=== PATIENT | male | born 1990 | race Caucasian/White ===

== ENCOUNTER 2016-12-20 16:47 | Emergency (ER) | payer MEDICAID, OTHER ==
[~2016-12-20] VITALS: Ht 188 cm; Wt 72.7 kg
[~2016-12-20 16:47] MED LIST: OXYC-474 PO
[2016-12-20 16:49] VITALS: BP 144/88; PULSE 116; RESP 18; O2SAT 99
[2016-12-20] MEDS ORDERED: 0.9% Sodium Chloride 1,000 ML IV ONE (17:14)
[2016-12-20] MEDS ORDERED: Ondansetron 2 mg/mL 2 mL Inj IV PRN (17:15)
--- NOTE | 2016-12-20 18:26 | ED.REPORT ---
HPI-General Illness Date of Service Dec 20, 2016 ED Provider: Bunny Jimenez DO The patient is a 26 year old male w/ a hx of drug abuse and anxiety who is sent to the ED from [facility] due to benzo and heroin withdrawal. His last benzo use was 15 -16 mg of Valium yesterday at 0500 and heroin 48 hrs ago. He used meth and trazodone a week ago. He has been taking benzodiazepines every day on and off for the last couple years. Pt had a seizure 5 years ago. Nursing Notes Stated Complaint: DETOX Chief Complaint: Substance Abuse Nursing Notes Reviewed: Yes Allergies: Coded Allergies: No Known Allergies (Unverified Allergy, Unknown, 10/21/14) Scheduled PRN Oxycodone (Roxicodone) 5 Mg Tablet 5 MG PO Q4H PRN PRN For Pain General Time Seen by MD: 18:09 Chief Complaint Other (detox from benzo and heroin) Hx Obtained From: Patient Arrived By: Walk-in Sudden in Onset?: Yes Onset Occurred: Just prior to arrival Symptom Duration: Since onset Recent Healthcare: Recent doctor visit Similar Sx Previous: Yes Past Medical History Past Medical History anxiety Past Surgical History denies Smoking History Current Some Day Smoker, Light Tobacco Smoker Social History benzo, meth, heroin abuse Alcohol Use: 1-3 per week Other Social History: Local resident Ambulatory Status Independent Review of Systems detox from benzos and heroin Full Review of Systems Constitutional: Reports: Chills Skin: Reports Diaphoresis Psychiatric: Reports: Anxiety Complete sys rev & neg: except as marked. Physical Exam Vital Signs Vital Signs Date Time Temp Pulse Resp B/P Pulse Ox O2 Delivery O2 Flow Rate FiO2 12/20/16 22:28 86 135/81 100 Room Air 12/20/16 19:09 85 110/66 100 Room Air 12/20/16 16:49 37.0 116 18 144/88 99 Room Air Initial VS: Reviewed General/Constitutional: Awake, Alert, Cooperative Head / Eyes: Atraumatic, Normocephalic Respiratory / Chest: Atraumatic, Breath sounds NL, Breath sounds = bilat, No respiratory distress Cardiovascular: Heart rate NL, Regular rhythm, Heart sounds NL, No gallop, No murmurs, No rubs Abdomen: Atraumatic, Soft, Non-tender Upper Extremities Upper Extremity / MS: Atraumatic, Inspection NL, Full range of motion, No deformity Lower Extremity / Pelvis / MS: Atraumatic, Inspection NL, Full range of motion , No deformity Skin: Atraumatic, Color NL Color / Condition: Positive: Rash present Rash / Lesion Notes: erythematous rash on lower back and superior chest back Neurologic: Oriented X3, Speech NL, No motor deficits Interpretation & Diagnostics Lab Results Interpretation Result Diagram: 12/20/16 1828 12/20/16 182 Test 12/20/16 18:28 12/20/16 18:29 12/20/16 19:26 12/20/16 23:41 White Blood Count 8.5th/mm3 (3.8-10.1) Red Blood Count 4.72mil/mm3 (4.40-5.80) Hemoglobin 13.9g/dL (13.8-17.2) Hematocrit 40.1% (41.0-50.0) Mean Corpuscular Volume 85.0fL (81-100) Mean Corpuscular Hemoglobin 29.4pg (27.0-35.0) Mean Corpuscular Hemoglobin Concent 34.7% (32.0-37.0) Red Cell Distribution Width 14.2% (12.3-15.4) Platelet Count 244bil/L (150-400) Neutrophils (%) (Auto) 57.5% (40-74) Lymphocytes (%) (Auto) 30.6% (14-46) Monocytes (%) (Auto) 9.6% (4-12) Eosinophils (%) (Auto) 1.2% (0-5) Basophils (%) (Auto) 0.6% (0-3) Sodium Level 147mEq/L (134-144) Potassium Level 4.2mEq/L (3.5-5.2) Chloride Level 109mEq/L (97-108) Carbon Dioxide Level 25mmol/L (18-29) Blood Urea Nitrogen 16mg/dL (6-20) Creatinine 0.78mg/dL (0.76-1.27) Estimat Glomerular Filtration Rate 130mL/min (>59) Glucose Level 116mg/dL (60-99) Calcium Level 9.4mg/dL (8.5-10.1) Magnesium Level 2.1mg/dL (1.6-2.6) Total Bilirubin 0.2mg/dL (0.0-1.2) Aspartate Amino Transf (AST/SGOT) 15U/L (0-50) Alanine Aminotransferase (ALT/SGPT) 11U/L (0-44) Alkaline Phosphatase 86U/L (25-150) Total Protein 7.1g/dL (6.4-8.4) Albumin 4.0g/dL (3.4-5.0) Hold Gibson Top Tube Received (Received) Hold Urine Received (Received) Re-Eval/Medical Decision Med Decision/Clinical Course 1833: Plan for ativan and taper 2016: Pt requests to talk to a Suboxone doctor 2129: Pt is given more ativan. 2219: Pt states he will go to any care center that we refer him to. Plan to give pt the number to sobering services. 2228: They do not have any beds available at [facility]. Plan to complete the taper. Pt has a girlfriend he can go home with. Mr. Pickard is clearly withdrawing from benzodiazepines and opiates. What is alarming is that he is used to taking up to 40 mg of Valium a day. His last dose of Valium was yesterday and he presented quite tremulous and anxious tachycardic and had dilated pupils. Of course his opiate withdrawals added to this as well. 4 mg of IV Ativan over 6 hours took care of most of his withdrawal symptoms. Dr. Smith did give him a dose of Suboxone. We attempted to get him placed in sobering services. As it were there are no male beds available. He does have a girlfriend was clean and sober. She has agreed through a phone conversation with him to manage the Ativan. Mr. Pickard clearly understands that if he combines Ativan with heroin, alcohol or any other sedatives and can be life-threatening. He would like to taper himself off the drugs. Evidently he has had success with drug to person the past. He I will provide him with our standard Ativan taper for alcohol withdrawal. This should really help with his benzo withdrawal. He he was instructed not to drive tonight. He is discharged in stable condition. Time of Eval: 18:33 Re-Evaluation/Progress Note: Plan for ativan and taper. Time of Eval: 20:17 Re-Evaluation/Progress Note: Pt requests to talk to a Suboxone doctor. Dr. Ken Adrian will be into the ED at 2100. Time of Eval: 21:30 Re-Evaluation/Progress Note: Pt states he will go to any care center that we refer him to. Plan to give pt the number to sobering services. They do not have any beds available at [facility]. Pt has a girlfriend he can go home with. Plan to complete the taper and discharge pt with follow up at [facility] or [facility]. Counseled Regarding: Diagnosis, Lab results, Need for follow-up, When/why to return to ED Discharge & Departure Primary Impression: Withdrawal from benzodiazepine Complication of substance-induced condition: with unspecified complication Qualified Code: F13.239 - Sedative, hypnotic or anxiolytic dependence with withdrawal, unspecified Additional Impression: Heroin withdrawal Disposition: Home Discharge Condition All VS Reviewed: Yes Condition: Stable Patient Instructions: Benzodiazepine Abuse (DC) Additional Instructions: Thank you for entrusting us with your care today. Stay with your girlfriend or another responsible adult. Do not take any other drugs then the Ativan taper. Take this exactly as prescribed. Do not drive while taking Ativan. If you combine this with heroine, alcohol, or benzodiazepines or any other drugs it could be life threatening. Follow up with [facility] or [facility] tomorrow. Do not drive tonight. Do not hesitate to return to the Emergency Department if you experience any new or worsening symptoms. We are always here to help. Congratulations on going to treatment and best of luck with your recovery! Referrals: Meaghan Askew MD (PCP) [facility] Scribe Attestation Portion of this note were transcribed by Indu Vazquez. I, Dr. Jimenez, personally performed the history, physical exam, and medical decision-making: I reviewed and confirmed the accuracy for the information in the transcribed note. Signed by: dalton Walker, 12/20/16 2200 copies to: Meaghan Askew MD ; [facility]; [facility] Bunny Jimenez DO Dec 20, 2016 18:25 Indu Vazquez Dec 20, 2016 18:36
[2016-12-20 18:36] LABS: BASOPHILS % (AUTO) 0.6 % (0-3); EOSINOPHILS % (AUTO) 1.2 % (0-5); MONOCYTES % (AUTO) 9.6 % (4-12); Mean Corpuscular Hemoglobin 29.4 pg (27.0-35.0); NEUTROPHILS % (AUTO) 57.5 % (40-74); Platelet Count 244 bil/L (150-400)
[2016-12-20 18:55] LABS: Magnesium 2.1 mg/dL (1.6-2.6)
[2016-12-20 19:09] VITALS: BP 110/66; PULSE 85; O2SAT 100
[2016-12-20] MEDS ORDERED: Buprenorphine 2 mg SL Tablet SL ONE (21:20)
[2016-12-20 22:28] VITALS: BP 135/81; PULSE 86; O2SAT 100
[2016-12-20] MEDS ORDERED: _LORazepam 2 MG Tablet PO SCH (22:45)
[2016-12-21] MEDS ORDERED: Buprenorphine 2 mg SL Tablet SL ONE
[2016-12-25 12:08] LABS: Hepatitis A Antibody IgM Negative (Negative); Hepatitis B Core Antibody IgM Negative (Negative)
== END 2016-12-20 23:58 | disposition home or self-care (01) ==
LOC: SED 16:47
DX: F13.239 Sedative, hypnotic or anxiolytic dependence with withdrawal, unspecified (principal); F11.23 Opioid dependence with withdrawal; F17.200 Nicotine dependence, unspecified, uncomplicated
CPT/HCPCS: 36415; 80053; 81002; 83735; 85025; 86705; 86709; 87340; 87341; 93005; 96361; 96374; 96376; 99285; G0472; J2060; J7030

== ENCOUNTER 2016-12-26 05:44 | Emergency (ER) | payer MEDICAID ==
[~2016-12-26] VITALS: Ht 188 cm; Wt 70.5 kg
[2016-12-26 05:53] VITALS: BP 123/77; PULSE 78; RESP 16; O2SAT 99
[2016-12-26] MEDS ORDERED: DIAZ5TAB3 PO (05:58)
--- NOTE | 2016-12-26 06:01 | ED.REPORT ---
HPI-General Illness Date of Service Dec 26, 2016 ED Provider: Ganesh Tillman DO Patient is a 26 year old male with a hx of anxiety and heroin and Benzodiazepine abuse who presents to the ED wanting help with his Benzo withdrawals. He was at [facility] but left. He last took Benzo's last night. He reports he uses Bezos to help with his chronic low back pain. He also reports a rash on his back and chest with a slight itch onset a week ago, and L knee pain exacerbated by ROM. He denies pain with rash, fever, or any other symptoms. He has been seen for similar symptoms [address] Jimenez who referred him to [facility] and was given an Ativan taper. He was given instructions to not use street drugs but patient reports he has taken Xanax and Clonazepam in addition to the Ativan. He LWOBS from the department last night. Nursing Notes Stated Complaint: DETOX, RASH, LEFT KNEE AND BACK PAIN Chief Complaint: General Complaint Nursing Notes Reviewed: Yes Allergies: Coded Allergies: No Known Allergies (Verified Allergy, Unknown, 12/26/16) Scheduled Diazepam (Diazepam) 5 Mg Tablet 5 MG PO TID General Time Seen by MD: 06:00 Chief Complaint Multip medical complaints Hx Obtained From: Patient Arrived By: Walk-in Sudden in Onset?: No Onset Occurred: Onset unknown Symptom Duration: Since onset Recent Healthcare: Recent doctor visit Similar Sx Previous: Yes Past Medical History Past Medical History anxiety Benzo addiction psoriasis Past Surgical History None reported Smoking History Current Some Day Smoker, Light Tobacco Smoker Social History benzo, meth, heroin abuse Alcohol Use: 1-3 per week Other Social History: Local resident Ambulatory Status Independent Review of Systems +Benzo withdrawals -pain with rash Full Review of Systems Constitutional: Denies: Fever Musculoskeletal: Reports: Back pain, Joint pain Skin: Reports Itching, Reports Rash Complete sys rev & neg: except as marked. Physical Exam Vital Signs Vital Signs Date Time Temp Pulse Resp B/P Pulse Ox O2 Delivery O2 Flow Rate FiO2 12/26/16 05:53 36.1 78 16 123/77 99 Room Air Initial VS: Reviewed, Vital signs normal Extremities: No swelling Psychiatric: Mood/affect normal, Behavior normal, Normal thought content General/Constitutional: Awake, Alert Intoxicated but appropriate Head / Eyes: Atraumatic, Normocephalic Neck: Full range of motion Respiratory / Chest: No respiratory distress Cardiovascular: Heart rate NL Lower Extremities Normals: Knee R exam normal, Knee L exam normal Skin: Warm, Dry Color / Condition: Positive: Rash present Rash / Lesion Notes: papular, blanching rash on chest and back. No vesicles, induration, and non-tender to palpation Also psoriatic plaques of the anterior tibia Neurologic: Oriented X3, Speech NL Re-Eval/Medical Decision Med Decision/Clinical Course Patient presents requesting more benzodiazepines after recently being prescribed a benzodiazepine taper from the ER and subsequently obtaining more Klonopin and Xanax from the street. He makes vague statements of having a long-term detox bed available at sometime in the future. In regard to this no benzodiazepines will be prescribed are dispensed from the ER on this visit, the patient is not in any benzo withdrawal this time clinically. He has a maculopapular rash which is most likely a contact dermatitis or allergic reaction, I do not suspect this is anything life threatening. One dose of dexamethasone was given for this. He has reported symptoms of long-term intermittent problems with his distal fibula, inspection of the knee and leg is unremarkable. Patient is referred to orthopedics. Time of Eval: 06:14 Re-Evaluation/Progress Note: Discussed plan for discharge with social work and chemical dependancy follow up. Patient understands and agrees with plan. All questions addressed at this time. Counseled Regarding: Diagnosis, Need for follow-up, When/why to return to ED Discharge & Departure Primary Impression: Dermatitis Additional Impression: Polysubstance abuse Disposition: Home Discharge Condition All VS Reviewed: Yes Condition: Stable Additional Instructions: Your rash seems to be either an allergic reaction or contact dermatitis. You were given a dose of dexamethasone to help suppress this. Additionally you can take Benadryl, which is [id number], to help with any itching. In regard to your knee, rest, avoid high impact sports. Follow-up with orthopedics as needed for further evaluation. Contact your substance abuse counselor for further instructions regarding long- term treatment and detox. The ER is always available for any life-threatening emergencies. Referrals: Meaghan Askew MD (PCP) Scribe Attestation Portions of this note were transcribed by Autumn Koch. I, Dr. Tillman personally performed the history, physical exam and medical decision-making; I reviewed and confirmed the accuracy of the information in the transcribed note. Signed by: Ben Martínez, 12/26/16 at 0648 copies to: Meaghan Askew MD, Timothy S DO Dec 26, 2016 06:01 AUTUMN KOCH Dec 26, 2016 06:10
== END 2016-12-26 06:33 | disposition home or self-care (01) ==
LOC: SED 05:44
DX: L30.9 Dermatitis, unspecified (principal); F19.10 Other psychoactive substance abuse, uncomplicated; F41.9 Anxiety disorder, unspecified

== ENCOUNTER 2016-12-26 10:13 | Emergency (ER) | payer MEDICAID, OTHER ==
[~2016-12-26] VITALS: Ht 188 cm; Wt 72.7 kg
[~2016-12-26 10:13] MED LIST changes: +DIAZ5TAB3 PO
[2016-12-26 10:22] VITALS: BP 123/66; PULSE 92; RESP 16; O2SAT 99
--- NOTE | 2016-12-26 11:44 | ED.REPORT ---
HPI-General Illness Date of Service Dec 26, 2016 ED Provider: Johnna Awan History of Present Illness: 26-year-old male here for benzo withdrawals. Patient states he chronically uses different benzodiazepines for back spasms and anxiety. These are prescribed and nonprescribed. Last used last night Xanax and clonazepam. Last used meth 3 days ago. He is wanting to go to treatment. He states he has a bed at a treatment facility in [place], [place]. has a prescriber, Dr. Wall. Wanting benzos from ER. Complaining of back spasms as well. as well as panic. Hx seizure 5 yrs ago. Seen here and given an ativan taper a week ago. pt wanting same. Nursing Notes Stated Complaint: BENZO DETOX Chief Complaint: Substance Abuse Nursing Notes Reviewed: Yes Allergies: Coded Allergies: No Known Allergies (Verified Allergy, Unknown, 12/26/16) Scheduled Diazepam (Diazepam) 5 Mg Tablet 5 MG PO TID General Time Seen by MD: 11:26 Chief Complaint Back pain Hx Obtained From: Patient Arrived By: Walk-in Onset Occurred: Onset unknown Context of Onset: Ran out of medication Location: : Back Quality: Same as prior Radiation: : Does not radiate Severity: Current: Moderate Severity: Maximum: Moderate Recent Healthcare: Recent doctor visit Similar Sx Previous: Yes Past Medical History Past Medical History anxiety Benzo addiction psoriasis Past Surgical History None reported Smoking History Current Some Day Smoker, Light Tobacco Smoker Social History benzo, meth, heroin abuse Alcohol Use: 1-3 per week Other Social History: Local resident Ambulatory Status Independent Review of Systems Full Review of Systems Constitutional: Denies: Chills, Fatigue, Fever Respiratory: Denies: Dyspnea on exertion, Pleuritic pain Cardiovascular: Denies: Chest pain, Edema GI: Denies: Abdominal pain, Nausea Musculoskeletal: Reports: Back pain Neurologic: Denies: Change LOC, Confusion, Dizziness, Headache, Lightheaded, Seizure, Syncope Psychiatric: Reports: Anxiety, Insomnia, Stress Complete sys rev & neg: except as marked. Physical Exam Vital Signs Vital Signs Date Time Temp Pulse Resp B/P Pulse Ox O2 Delivery O2 Flow Rate FiO2 12/26/16 12:12 36.4 112 16 114/75 98 12/26/16 10:22 36.6 92 16 123/66 99 Room Air Initial VS: Reviewed, Vital signs normal General/Constitutional: Well-developed, Well-nourished Head / Eyes: Atraumatic, Normocephalic, PERRL Skin: Warm, Dry, No cyanosis Neurologic: Alert, Oriented, Nonfocal Distress / Hydration: Positive: Distress mild Behavior: Positive: Anxious Head / Eyes: Normocephalic, PERRL, EOMI, No nystagmus, No photophobia, No scleral icterus, Conjunctiva NL, Eyelids NL Neck: Supple, No meningismus, Full range of motion, No swelling, Non-tender, No masses Respiratory / Chest: Breath sounds NL, No respiratory distress, No rales, No rhonchi, No wheezing Cardiovascular: Heart rate NL, Regular rhythm, Heart sounds NL, Cap refill not delayed, Peripheral circulation NL Abdomen: Atraumatic, Soft, Non-tender, No guarding, No rebound Re-Eval/Medical Decision Med Decision/Clinical Course LMOM for admissions at treatment center at [place], [place] Patient has a prescribing physician Dr. Wall at [facility]. Patient states [facility] His primary care physician prescribing his medications for the treatment center. The emergency room does not need to play a role in this process. Discussed this with the patient he states he cannot get to [place] to see his doctor and his back is hurting. We will give him a muscle relaxer for the back spasms, no prescription for this. He states he has been taking ibuprofen like candy. Discussed no further benzos from the ER. He is asking for another taper like Dr Jimenez gave him. Denied this request. Call Dr. Wall at [facility] talk to Dr. Wall myself. He states they have sent a letter to approve Valium treatment at his treatment facility. They have not seen him in a number of months but they are assisting him in getting in this facility. Is nothing further this ER needs to do his primary care is willing to help him. Instructed the patient to call his PCP for further help. Discharge & Departure Shift Change Sign-Out Procedures: Results discussed Response to Therapy: Unchanged Primary Impression: Substance abuse Additional Impression: Lumbar back sprain Encounter type: initial encounter Qualified Code: S33.5XXA - Sprain of ligaments of lumbar spine, initial encounter Disposition: Home Discharge Condition All VS Reviewed: Yes Condition: Stable Patient Instructions: Benzodiazepine Abuse (ED) Additional Instructions: Use the bus pass you were given today to go to your doctor's office. you can also call Dr. Wall. Please continue the process of getting to treatment and try to get your way to [facility] today. Return here as needed. Referrals: Ravi Wall MD EDSupervising Provider for [facility]: Ganesh Tillman DO copies to: Ravi Wall MD, Linnea K ARNP Dec 26, 2016 11:43
[2016-12-26 12:12] VITALS: BP 114/75; PULSE 112; RESP 16; O2SAT 98
== END 2016-12-26 12:13 | disposition home or self-care (01) ==
LOC: SED 10:13
DX: F13.10 Sedative, hypnotic or anxiolytic abuse, uncomplicated (principal); S33.5XXA Sprain of ligaments of lumbar spine, initial encounter; X58.XXXA Exposure to other specified factors, initial encounter; Y93.89 Activity, other specified; Y92.9 Unspecified place or not applicable; Y99.8 Other external cause status; F17.200 Nicotine dependence, unspecified, uncomplicated